=== PATIENT | male | born 2000 | race Caucasian/White ===

== ENCOUNTER 2025-06-03 14:28 | Outpatient (CLI) | payer OTHER | END 2025-06-03 14:29 | disposition home or self-care (01) | LOC: MADLAB 14:28 | PROVIDERS: ATTEND Chiropractor | DX: M47.816 Spondylosis without myelopathy or radiculopathy, lumbar region (principal); M51.379 Other intervertebral disc degeneration, lumbosacral region without mention of lumbar back pain or lower extremity pain | CPT/HCPCS: 72100 ==

== ENCOUNTER 2025-06-20 09:11 | Outpatient (CLI) | payer OTHER | END 2025-06-20 09:12 | disposition home or self-care (01) | LOC: MADRAD 09:11 | PROVIDERS: ATTEND Chiropractor | DX: R06.02 Shortness of breath (principal) | CPT/HCPCS: 71046 ==